=== PATIENT | female | born 1995 ===

== ENCOUNTER → 2016-02-18 | Outpatient (CLI) | payer BC, OTHER ==
[~2016-02-18] MED LIST: BCPILLS PO; HYDR-5688 PO
== END | disposition home or self-care (01) ==
LOC: C.PAPS 13:45
PROVIDERS: ATTEND Obstetrics & Gynecology
DX: Z01.419 Encounter for gynecological examination (general) (routine) without abnormal findings (principal)

== ENCOUNTER → 2016-02-18 | Outpatient (CLI) | payer BC, OTHER ==
[2016-02-21 01:55] LABS: CHLAMYDIA TRACH RNA*** NOT DETECTED (NOT DETECTED); GC (NEIS GONORRHOEAE)RNA** NOT DETECTED (NOT DETECTED)
== END | disposition home or self-care (01) ==
LOC: C.LABSPEC 16:17
PROVIDERS: ATTEND Obstetrics & Gynecology
DX: Z01.419 Encounter for gynecological examination (general) (routine) without abnormal findings (principal)

== ENCOUNTER 2016-08-17 19:59 | Emergency (ER) | payer BC, OTHER ==
[~2016-08-17] VITALS: Ht 169.5 cm; Wt 70.9 kg
[2016-08-17 20:08] VITALS: TEMP 36.8; Ht 169.5 cm; Wt 70.9 kg
[2016-08-17] MEDS ORDERED: BCPILLS PO (20:31)
[2016-08-17] MEDS ORDERED: ACETAMINOPHEN 500 MG TAB PO STA (21:10)
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
[2016-08-17] MEDS ORDERED: HYDR-5688 PO (21:52)
[2016-08-17] MEDS ORDERED: HYDROCODONE/ACETAMOPHEN 5/325MG TAB PO ONE (22:00)
[2016-08-17 22:01] VITALS: BP 125/78; PULSE 76; O2SAT 98
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
== END 2016-08-17 22:02 | disposition home or self-care (01) ==
LOC: C.EDB 20:01 → C.EDA 22:02
DX: T14.90 Injury, unspecified (principal); V86.59XA Driver of other special all-terrain or other off-road motor vehicle injured in nontraffic accident, initial encounter; T14.8 Other injury of unspecified body region

== ENCOUNTER → 2016-09-03 | Outpatient (CLI) | payer BC, OTHER ==
[~2016-09-03] MED LIST changes: -HYDR-5688 PO
[2016-09-03 14:56] LABS: URINE APPEARANCE CLEAR (CLEAR); URINE BILIRUBIN NEG (NEG); URINE COLOR YELLOW; URINE EPITHELIAL CELL AUTO 20-30 /lpf (0-5); URINE NITRITE NEG (NEG); URINE SPECIFIC GRAVITY 1.018 (1.000-1.030); UROBILINOGEN NEG (NEG)
[2016-09-03 14:59] LABS: MANUAL MICROSCOPIC REQUIRED? NO; REVIEW REQ? NO
== END | disposition home or self-care (01) ==
LOC: C.LAB1850 13:11
PROVIDERS: ATTEND Physician Assistant
DX: R39.9 Unspecified symptoms and signs involving the genitourinary system (principal)

== ENCOUNTER → 2017-02-18 | Outpatient (CLI) | payer BC, OTHER | END | disposition home or self-care (01) | LOC: C.LABSPEC 13:48 | PROVIDERS: ATTEND Physician Assistant | DX: Z01.419 Encounter for gynecological examination (general) (routine) without abnormal findings (principal) ==

== ENCOUNTER → 2017-03-04 | Outpatient (CLI) | payer BC, OTHER | END | disposition home or self-care (01) | LOC: C.LAB1850 09:31 | PROVIDERS: ATTEND Physician Assistant | DX: R39.9 Unspecified symptoms and signs involving the genitourinary system (principal) ==

== ENCOUNTER 2017-05-05 14:34 | Emergency (ER) | payer BC, OTHER ==
[~2017-05-05] VITALS: Ht 170.2 cm; Wt 62.0 kg
[2017-05-05 14:47] VITALS: TEMP 36.8; Ht 170.2 cm; Wt 62.0 kg
[2017-05-05] MEDS ORDERED: ALUMINUM/MAGNESIUM SUSP 30 ML UDC PO STA (15:39)
--- NOTE | 2017-05-05 15:51 | EMERGENCY ROOM VISIT NOTE ---
History Report prepared by Omari: Patricio Howard Under the Supervision of: Dr. Mikie Jackson D.O. First contact with patient: 15:34 Chief Complaint: CHEST PAIN Stated Complaint: HEART MURMUR, LEFT ARM PAIN, CHEST PAIN, Nursing Triage Summary: Patient ambulatory to triage with an upright and steady gait. Patient has a friend with her. Patient states "Around 0800 this morning, I developed a dull pain in the center of my chest. Around 0900,the pain came back again and has felt constant since that time. I was a little lightheaded when the pain came back. That feeling has passed. I started having some tingling in my left arm around 1400 which is why I decided to come to the ER." Patient denies any falls or trauma. Patient denies a cardiac history. History of Present Illness The patient is a 21 year old female who presents to the Emergency Room with complaints of chest pain that began this morning at 0600, 9.5 hours prior to arrival. The patient states that her chest pain began after she used the restroom this morning at 0600 and laid back down. She notes that the pain is localized to the center of her chest, and that it began to worsen at 0800. It continued to get progressively worse throughout the day. She is now also experiencing some tingling in her left upper extremity. Her pain is worsened by laying flat, and seems improved by walking around. She does feel the need to "keep taking a deep breath." She denies any lower extremity swelling. 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 A total of 10 systems reviewed and were otherwise negative. Past Medical & Surgical Hx of a 2/6 heart murmur. Family History Patient reports no known family medical history. Social History Smoking Status: Never Smoker Drug Use: none Marital Status: single Occupation Status: employed Current/Historical Medications Scheduled Aspirin (Aspirin Ec), 0.25 TAB PO TODAY Control Pills ( Control Pills), 1 TAB PO DAILY Allergies Coded Allergies: BEE STING (Verified Allergy, Mild, SWELLING, 05/05/17) Physical Exam Vital Signs Date Time Temp Pulse Resp B/P (MAP) Pulse Ox O2 Delivery O2 Flow Rate FiO2 05/05/17 18:13 70 129/70 99 05/05/17 16:11 63 05/05/17 15:53 Room Air 05/05/17 15:53 Room Air 05/05/17 14:47 100 Room Air 05/05/17 14:47 36.8 83 18 135/65 100 Room Air Physical Exam GENERAL: Patient is awake, alert, and in no acute distress. Patient is resting comfortably and showing no signs of anxiety EYES: The conjunctivae are clear. The pupils are round and reactive. EARS, NOSE, MOUTH AND THROAT: The nose is without any evidence of any deformity. Mucous membranes are moist tongue is midline NECK: The neck is nontender and supple. RESPIRATORY: Normal respiratory effort is noted there is no evidence of wheezing rhonchi or rales CARDIOVASCULAR: Regular rate and rhythm noted there a systolic ejection murmur was suggested. No rubs or gallops normal S1 normal S2 GASTROINTESTINAL: The abdomen is soft. Bowel sounds are present in all quadrants. Abdomen is nontender PELVIS: The Pelvis is stable. No tenderness to palpation is noted. BACK: No midline tenderness or or step-off noted range of motion in flexion extension as well as rotation no signs of muscle spasm noted MUSCULOSKELETAL/EXTREMITIES: There is no evidence of gross deformity full range of motion is noted in the hips and shoulders SKIN: There is no obvious evidence of any rash. There are no petechiae, pallor or cyanosis noted. NEUROLOGIC: Patient is awake alert and oriented x3 strength is symmetric patellar reflexes are 2+ bilaterally Medical Decision & Procedures ER Provider Diagnostic Interpretation: Radiology results as stated below per my review and radiologist interpretation: CHEST ONE VIEW PORTABLE CLINICAL HISTORY: CHEST PAIN dyspnea COMPARISON STUDY: 08/17/2016 FINDINGS: The bones soft tissues and hemidiaphragms are normal. The cardiomediastinal silhouette is normal. The lungs are clear. The pulmonary vasculature is normal. IMPRESSION: Negative chest. The above report was generated using voice recognition software. It may contain grammatical, syntax or spelling errors. Electronically signed by: Tan Deras M.D. 05/05/2017 4:01 PM Dictated Date/Time: 05/05/2017 4:00 PM Laboratory Results 05/05/17 15:50 Red Blood Count 4.73, Mean Corpuscular Volume 86.3, Mean Corpuscular Hemoglobin 29.4, Mean Corpuscular Hemoglobin Concent 34.1, Mean Platelet Volume 10.5, Neutrophils (%) (Auto) 53.5, Lymphocytes (%) (Auto) 37.6, Monocytes (%) (Auto) 5.8, Eosinophils (%) (Auto) 2.7, Basophils (%) (Auto) 0.3, Neutrophils # (Auto) 3.58, Lymphocytes # (Auto) 2.52, Monocytes # (Auto) 0.39, Eosinophils # (Auto) 0.18, Basophils # (Auto) 0.02 05/05/17 15:50 Test 05/05/17 15:50 05/05/17 15:54 White Blood Count 6.70 K/uL (4.8-10.8) Red Blood Count 4.73 M/uL (4.2-5.4) Hemoglobin 13.9 g/dL (12.0-16.0) Hematocrit 40.8 % (37-47) Mean Corpuscular Volume 86.3 fL (80-100) Mean Corpuscular Hemoglobin 29.4 pg (25-34) Mean Corpuscular Hemoglobin Concent 34.1 g/dl (32-36) Platelet Count 224 K/uL (130-400) Mean Platelet Volume 10.5 fL (7.4-10.4) Neutrophils (%) (Auto) 53.5 % Lymphocytes (%) (Auto) 37.6 % Monocytes (%) (Auto) 5.8 % Eosinophils (%) (Auto) 2.7 % Basophils (%) (Auto) 0.3 % Neutrophils # (Auto) 3.58 K/uL (1.4-6.5) Lymphocytes # (Auto) 2.52 K/uL (1.2-3.4) Monocytes # (Auto) 0.39 K/uL (0.11-0.59) Eosinophils # (Auto) 0.18 K/uL (0-0.5) Basophils # (Auto) 0.02 K/uL (0-0.2) RDW Standard Deviation 39.3 fL (36.4-46.3) RDW Coefficient of Variation 12.3 % (11.5-14.5) Immature Granulocyte % (Auto) 0.1 % Immature Granulocyte # (Auto) 0.01 K/uL (0.00-0.02) Erythrocyte Sedimentation Rate 3 mm/hr (0-21) Prothrombin Time 10.5 SECONDS (9.0-12.0) Prothromb Time International Ratio 1.0 (0.9-1.1) Activated Partial Thromboplast Time 25.9 SECONDS (21.0-31.0) Partial Thromboplastin Ratio 1.0 Anion Gap 6.0 mmol/L (3-11) Est Creatinine Clear Calc Drug Dose 112.9 ml/min Estimated GFR () 129.1 Estimated GFR (Non- 111.3 BUN/Creatinine Ratio 16.7 (10-20) Calcium Level 9.3 mg/dl (8.5-10.1) Total Bilirubin 0.5 mg/dl (0.2-1) Direct Bilirubin < 0.1 mg/dl (0-0.2) Aspartate Amino Transf (AST/SGOT) 16 U/L (15-37) Alanine Aminotransferase (ALT/SGPT) 38 U/L (12-78) Alkaline Phosphatase 64 U/L (45-117) Troponin I < 0.015 ng/ml (0-0.045) C-Reactive Protein < 0.29 mg/dl (0-0.29) Total Protein 7.8 gm/dl (6.4-8.2) Albumin 4.1 gm/dl (3.4-5.0) Lipase 135 U/L (73-393) Human Chorionic Gonadotropin, Qual NEG (NEG) Bedside D-Dimer 105 ng/mlFEU (0-450) Laboratory results per my review. Medications Administered Medications (Trade) Dose Ordered Sig/Stefan Route Start Time Stop Time Status Last Admin Dose Admin Al Hydroxide/Mg Hydroxide (Maalox Susp) 30 ml NOW STAT PO 05/05/17 15:39 05/05/17 15:41 DC 05/05/17 16:07 30 ML ECG Per My Interpretation Indication: chest pain, SOB/dyspnea Rate (beats per minute): 79 Rhythm: normal sinus Findings: other (No LUZMA/STD, No PVCs ) Comparison ECG Date: no prior available ED Course 7: The patient was evaluated in room B10. A complete history and physical examination were performed. 1538: Ordered Maalox Susp 30 mL PO. 1650: Upon reevaluation, the patient is resting in bed. I discussed the results and treatment plan with her. She verbalized agreement of the treatment plan. The patient was discharged home. Medical Decision Differential diagnosis: Etiologies such as cardiac ischemia, aortic dissection, pulmonary embolism, pneumonia, pneumothorax, musculoskeletal, infections, pericarditis, myocarditis , esophageal rupture, gastrointestinal, as well as others were entertained. Nursing notes reviewed. The patient is a 21-year-old female who presented to the emergency department for an evaluation of chest discomfort. The patient had right-sided chest discomfort since this morning. The patient's chest x-ray did not show any acute ischemic changes and her troponin was negative despite ongoing chest pain throughout the entire day. The patient was treated with Maalox in the emergency department. Her d-dimer is negative. She was encouraged to continue all medications as prescribed and follow-up with her family doctor for further evaluation. The patient does have a history of a heart murmur so it is possible she may require further study such as echocardiogram. She was also encouraged to return to the emergency department immediately if symptoms change worsen or the need arises. Medication Reconcilliation Current Medication List: was personally reviewed by me Blood Pressure Screening Patient's blood pressure: Normal blood pressure Impression Primary Impression: Right-sided chest pain Scribe Attestation The scribe's documentation has been prepared under my direction and personally reviewed by me in its entirety. I confirm that the note above accurately reflects all work, treatment, procedures, and medical decision making performed by me. Departure Information Dispostion Home / Self-Care Referrals No Doctor, Assigned (PCP) Forms HOME CARE DOCUMENTATION FORM, IMPORTANT VISIT INFORMATION Patient Instructions My [facility] Additional Instructions Continue all medications as prescribed. Rest and avoid any strenuous activity. Call your family doctor to schedule follow-up appointment. You may require further studies such as an echocardiogram or a stress test to further evaluate the cause your pain. Consider trying Maalox or Mylanta as directed for symptomatic relief. You may also want to try starting an [id number] medication such as Prilosec or Zantac.
--- NOTE | 2017-05-05 16:03 | DIAGNOSTIC IMAGING REPORT ---
CHEST ONE VIEW PORTABLE CLINICAL HISTORY: CHEST PAIN dyspnea COMPARISON STUDY: 08/17/2016 FINDINGS: The bones soft tissues and hemidiaphragms are normal. The cardiomediastinal silhouette is normal. The lungs are clear. The pulmonary vasculature is normal. IMPRESSION: Negative chest. The above report was generated using voice recognition software. It may contain grammatical, syntax or spelling errors. Electronically signed by: Tan Deras M.D. 05/05/2017 4:01 PM Dictated Date/Time: 05/05/2017 4:00 PM
[2017-05-05] MEDS ORDERED: ASPI325T39 PO (16:05)
[2017-05-05 16:16] LABS: BASO % 0.3 %; BASO ABS # 0.02 K/uL (0-0.2); EOS % 2.7 %; EOS ABS # 0.18 K/uL (0-0.5); HEMATOCRIT 40.8 % (37-47); HEMOGLOBIN 13.9 g/dL (12.0-16.0); IG# 0.01 K/uL (0.00-0.02); LYMPH % 37.6 %; LYMPH ABS # 2.52 K/uL (1.2-3.4); MEAN CELL VOLUME 86.3 fL (80-100); MEAN CORPUSCULAR HEMOGLOBIN 29.4 pg (25-34); MEAN CORPUSCULAR HGB CONC 34.1 g/dl (32-36); MEAN PLATELET VOLUME 10.5 fL (7.4-10.4); MONO % 5.8 %; MONO ABS # 0.39 K/uL (0.11-0.59); NEUT % 53.5 %; NEUT ABS # 3.58 K/uL (1.4-6.5); PLATELET COUNT 224 K/uL (130-400); RED CELL DISTRIBUTION WIDTH CV 12.3 % (11.5-14.5); RED CELL DISTRIBUTION WIDTH SD 39.3 fL (36.4-46.3)
[2017-05-05 16:23] LABS: PTT PATIENT 25.9 SECONDS (21.0-31.0)
[2017-05-05 16:30] LABS: ALBUMIN 4.1 gm/dl (3.4-5.0); ALT/SGPT 38 U/L (12-78); AST/SGOT 16 U/L (15-37); BLOOD UREA NITROGEN 13 mg/dl (7-18); CALCIUM 9.3 mg/dl (8.5-10.1); CARBON DIOXIDE 26 mmol/L (21-32); CREATININE 0.76 mg/dl (0.60-1.20); GLUCOSE 86 mg/dl (70-99); LIPASE 135 U/L (73-393); POTASSIUM 3.8 mmol/L (3.5-5.1); SODIUM 138 mmol/L (136-145)
[2017-05-05 16:35] LABS: ALKALINE PHOSPHATASE 64 U/L (45-117); TOTAL PROTEIN 7.8 gm/dl (6.4-8.2)
[2017-05-05 18:13] VITALS: BP 129/70; PULSE 70; O2SAT 99
[2017-05-05] MEDS ORDERED: BCPILLS PO (20:31)
== END 2017-05-05 18:05 | disposition home or self-care (01) ==
LOC: C.EDB 14:37
DX: R07.9 Chest pain, unspecified (principal); R01.1 Cardiac murmur, unspecified; Z79.82 Long term (current) use of aspirin; Z79.3 Long term (current) use of hormonal contraceptives; Z91.030 Bee allergy status